=== PATIENT | male | born 1995 | race Caucasian/White ===

== ENCOUNTER → 2022-07-24 | Outpatient (CLI) | payer BC ==
--- NOTE | 2022-07-24 11:38 | Diagnostic Imaging Report ---
INDICATION: Shoulder pain status post fall. EXAMINATION: Left shoulder 07/24/2022. FINDINGS: 4 views of the shoulder. There are osseous fragments superimposed upon the proximal anterior humerus likely loose bodies within the biceps tendon sheath. There is narrowing and spurring within the inferior aspect of the glenohumeral joint with a possible osseous fragment inferior to the glenoid age indeterminate. Additionally there is deformity of the superolateral border of the humeral head. Correlate for history of previous dislocation as this may represent a Hill-Sachs deformity. The remaining osseous structures intact. Visualized left lung clear. IMPRESSION: 1. Chronic findings including loose bodies along the biceps tendon sheath with degenerative changes at the glenohumeral joint. 2. Possible osseous Bankart lesion and Hill-Sachs deformity. Correlate for prior history of dislocation. Dictated by: Dictated on workstation # [id number]
== END ==
LOC: RAD FS 10:53
PROVIDERS: ATTEND Nurse Practitioner
DX: M19.012 Primary osteoarthritis, left shoulder (principal); Z91.81 History of falling
CPT/HCPCS: 73030